=== PATIENT | male | born 1950 | race Caucasian/White ===

== ENCOUNTER 2016-07-11 18:51 | Emergency (ER) | payer MEDICARE, BC ==
[~2016-07-11] VITALS: Ht 185.4 cm; Wt 81.8 kg
[~2016-07-11 18:51] MED LIST: ALEVE 220MG220 MG PO; CEPHALEXIN500 M1 PO; LISINOPRIL20 MG PO; LORTAB 5/500 501 TAB PO; bp med
[2016-07-11 18:57] VITALS: TEMP 98.4
[2016-07-11] MEDS ORDERED: COZAAR 50MG50 MG/TAB PO (19:00)
[2016-07-11] MEDS ORDERED: VENTOLIN0.09 MG IH (19:01)
[2016-07-11] MEDS ORDERED: ZANTAC 150MG T150 MG PO (19:01)
[2016-07-11 19:45] LABS: HEMATOCRIT 45.4 % (42.0-52.0); HEMOGLOBIN 15.3 g/dl (13.5-18.0); MEAN CELL VOLUME 89 fl (80.0-100.0); MEAN CORPUSCULAR HEMOGLOBIN 30 pg (27.0-31.0); MEAN CORPUSCULAR HGB CONC 34 g/dl (33.0-37.0); MEAN PLATELET VOLUME 9.4 fl (7.4-10.4); PLATELET COUNT 270 K/mm3 (130-400); REDCELL DISTRIBUTION WIDTH-CV 14.1 % (11.5-14.5); WHITE BLOOD COUNT 14.5 K/mm3 (4.8-10.8)
[2016-07-11 20:02] LABS: CALCIUM 9.6 mg/dL (8.4-10.2); CREATININE, serum 0.89 mg/dL (0.66-1.25); POTASSIUM 3.8 mmol/L (3.4-5.0)
[2016-07-11 20:19] LABS: ADD PATHOLOGY DIFF REVIEW NO
[2016-07-11 20:27] LABS: INFLUENZA B NEGATIVE
[2016-07-11 20:29] LABS: BAND 10 % (0-10); NEUTROPHILS 61 % (42.0-75.2); PLATELET ESTIMATE NORMAL (NORMAL); TOTAL CELLS COUNTED 100
[2016-07-11] MEDS ORDERED: ZITHROMAX Z PA250 MG PO (20:57)
[2016-07-11 21:07] VITALS: BP 133/88; PULSE 91
== END 2016-07-11 21:07 | disposition home or self-care (01) ==
LOC: COL.ER 18:51
PROVIDERS: Emergency Medicine
DX: J20.9 Acute bronchitis, unspecified (principal); F17.210 Nicotine dependence, cigarettes, uncomplicated; I10 Essential (primary) hypertension
CPT/HCPCS: J7030

== ENCOUNTER → 2017-02-06 | Outpatient (REF) ==
[~2017-02-06] MED LIST changes: +COZAAR 50MG50 MG/TAB PO; +VENTOLIN0.09 MG IH; +ZANTAC 150MG T150 MG PO; +ZITHROMAX Z PA250 MG PO
== END ==
LOC: ZLAB.WCH 15:14
DX: Z01.89 Encounter for other specified special examinations (principal)
CPT/HCPCS: G0103

== ENCOUNTER → 2017-02-12 | Outpatient (CLI) | payer MEDICARE, BC | LOC: COL.PUL 11:02 | DX: Z12.5 Encounter for screening for malignant neoplasm of prostate (principal); Z13.220 Encounter for screening for lipoid disorders; R05 Cough; I10 Essential (primary) hypertension; Z72.0 Tobacco use ==

== ENCOUNTER → 2017-11-17 | Outpatient (REF) | LOC: ZLAB.WCH 09:54 | DX: Z01.89 Encounter for other specified special examinations (principal) ==

== ENCOUNTER → 2018-03-18 | Outpatient (CLI) | payer MEDICARE, BC | LOC: COL.PUL 07:53 | DX: Z12.5 Encounter for screening for malignant neoplasm of prostate (principal); Z13.220 Encounter for screening for lipoid disorders; J44.9 Chronic obstructive pulmonary disease, unspecified; I10 Essential (primary) hypertension; F17.210 Nicotine dependence, cigarettes, uncomplicated ==

== ENCOUNTER 2020-02-25 00:47 | Emergency (ER) | payer MEDICARE, BC ==
[~2020-02-25] VITALS: Ht 188 cm; Wt 113.6 kg
[2020-02-25 00:48] VITALS: TEMP 94
[2020-02-25 01:06] LABS: HEMOGLOBIN 15.1 g/dl (13.5-18.0); MEAN CELL VOLUME 98 fl (80.0-100.0); MEAN CORPUSCULAR HEMOGLOBIN 31 pg (27.0-31.0); MEAN CORPUSCULAR HGB CONC 32 g/dl (33.0-37.0); MEAN PLATELET VOLUME 9.1 fl (7.4-10.4); PLATELET COUNT 241 K/mm3 (130-400); RED BLOOD COUNT 4.91 M/mm3 (4.20-5.60); REDCELL DISTRIBUTION WIDTH-CV 14.7 % (11.5-14.5)
[2020-02-25 01:11] LABS: PROTHROMBIN TIME 11.7 SECONDS (9.7-12.8)
[2020-02-25 01:14] LABS: COLLECTION METHOD CLEAN CATCH
[2020-02-25 01:14] LABS: PARTIAL THROMBOPLASTIN TIME 42.8 SECONDS (26.0-37.0)
[2020-02-25 01:21] LABS: ARTERIAL BLD GAS O2 SATURATION 99.4 % (92-100); ARTERIAL BLD GAS TCO2 CT 14.9; ARTERIAL BLOOD GAS BASE EXCESS -15.8 (-2-2); ARTERIAL BLOOD GAS HCO3 13.5 meq/L (22-26); ARTERIAL BLOOD GAS PCO2 44.2 mmHg (35-45)
[2020-02-25 01:22] LABS: ARTERIAL BLOOD GAS PO2 391.5 mmHg (80-100)
[2020-02-25 01:26] LABS: EOSINOPHIL 4 % (0-4); LYMPHOCYTE 36 % (20.0-51.0); METAMYELOCYTE 2 % (0-0); NEUTROPHILS 54 % (42.0-75.2); PLATELET ESTIMATE NORMAL (NORMAL)
[2020-02-25 01:28] LABS: TOXIC GRANULATION PRESENT
[2020-02-25 01:33] LABS: ALBUMIN 3.7 gm/dL (3.5-5.0); BILIRUBIN,TOTAL 0.7 mg/dL (0.0-1.0); CALCIUM 8.4 mg/dL (8.4-10.2); CREATININE, serum 1.26 (0.66-1.25); MAGNESIUM 2.7 mg/dL (1.6-2.3); POTASSIUM 4.7 mmol/L (3.4-5.0); TOTAL PROTEIN 6.4 gm/dL (6.4-8.2)
[2020-02-25 01:51] LABS: TROPONIN-I 0.134 ng/mL (0.000-0.035)
[2020-02-25 01:53] LABS: AMORPHOUS CRYSTAL Present /uL; MUCOUS Present /lpf; PH 6 (5-8); SQUAMOUS EPITHELIAL 0-2 /hpf; URINE APPEARANCE Cloudy; URINE BACTERIA None Seen /hpf; URINE BILIRUBIN Negative (NEGATIVE); URINE BLOOD 1+ (NEGATIVE); URINE COLOR Yellow; URINE GLUCOSE Negative (NEGATIVE); URINE KETONE Negative (NEGATIVE); URINE LEUKOCYTE ESTERASE Trace (NEGATIVE); URINE NITRATE Negative (NEGATIVE); URINE PROTEIN(semi-quant) 2+ (NEGATIVE); URINE UROBILINOGEN Negative (NEGATIVE)
[2020-02-25 02:23] VITALS: BP 116/81; PULSE 87
[2020-02-25 08:39] LABS: PATHOLOGY DIFF REVIEW OK
== END 2020-02-25 02:23 | disposition short-term general hospital (02) ==
LOC: COL.ER 00:47
PROVIDERS: Emergency Medicine
DX: I46.9 Cardiac arrest, cause unspecified (principal); I21.3 ST elevation (STEMI) myocardial infarction of unspecified site; I10 Essential (primary) hypertension; Z20.828 Contact with and (suspected) exposure to other viral communicable diseases; F17.210 Nicotine dependence, cigarettes, uncomplicated
CPT/HCPCS: J0282; J1644; J3101; J7030; J7060